=== PATIENT | female | born 1950 | race Asian ===

== ENCOUNTER 2016-11-05 08:54 | Day surgery (SDC) | payer OTHER, MEDICARE ==
[2016-11-04 15:17] VITALS: BMI 28.3
[2016-11-05] MEDS ORDERED: LIDOCAINE HCL/PF 1% SDV 5ML VIAL ONE (10:43)
[2016-11-05] MEDS ORDERED: PROPOFOL 20 ML ONE ×3 (10:43)
[2016-11-05 11:19] VITALS: TEMP 98
[2016-11-05 12:13] VITALS: BP 117/71; PULSE 65
== END 2016-11-05 12:12 | disposition home or self-care (01) ==
LOC: JASU-ENDO 08:54
PROVIDERS: ATTEND Internal Medicine Gastroenterology
PROC: 0DJD8ZZ Inspection of Lower Intestinal Tract, Via Natural or Artificial Opening Endoscopic (ICD-10-PCS; principal; 2016-11-05 11:15)
DX: Z86.010 Personal history of colon polyps (principal); Z85.3 Personal history of malignant neoplasm of breast

== ENCOUNTER 2017-09-12 11:39 | Emergency (ER) | payer OTHER ==
[2017-09-12 12:16] VITALS: BP 124/74; PULSE 74; TEMP 97.4; BMI 24.9
--- NOTE | 2017-09-12 13:19 | PDOC ---
History of Present Illness - General Chief Complaint: Injury Stated Complaint: FALL/ RT ANKLE PAIN Time Seen by Provider: 09/12/17 12:46 History Source: Patient Exam Limitations: No Limitations - History of Present Illness Initial Comments: 09/12/17 13:18 CHIEF COMPLAINT: Right ankle injury HISTORY OF PRESENT ILLNESS: Patient is a 66-year-old female, history of depression, anemia, coronary artery disease, hypothyroidism, high cholesterol, hypertension, breast cancer, reports walking down her stairs and missed the last step and fell. Inversion injury to right ankle lateral ankle with bruising. Unable to bear weight. Denies hitting her head, no back pain, no other injury. 09/12/17 13:50 Occurred: reports: just prior to arrival Severity: reports: moderate Pain Location: reports: lower extremity Method of Injury: Yes: fall Modifying Factors: improves with: cold therapy Loss of Consciousness: no loss of consciousness Past History - Past Medical History Allergies/Adverse Reactions: Allergies Allergy/AdvReac Type Severity Reaction Status Date / Time Penicillins Allergy Severe Verified 09/12/17 12:15 Home Medications: Ambulatory Orders Atorvastatin Calcium [Lipitor] 20 mg PO HS 08/25/12 Calcium Carbonate [Calcium] 1,200 mg PO DAILY 08/25/12 Cholecalciferol (Vitamin D3) [Vitamin D] 1,000 unit PO DAILY 08/25/12 Citalopram Hydrobromide [Celexa -] 20 mg PO BID 08/25/12 Clonazepam [Klonopin -] 2 mg PO TID 08/25/12 Levothyroxine [Synthroid -] 25 mcg PO DAILY 08/25/12 Zolpidem Tartrate [Ambien] 10 mg PO HS 08/25/12 Alendronate Na [Fosamax (Weekly)] 70 mg PO Q7D 11/05/16 Bupropion HCl [Wellbutrin Xl] 300 mg PO DAILY 11/05/16 Cyanocobalamin [Vitamin B12 -] 1,000 mcg PO DAILY 11/05/16 Venlafaxine HCl ER [Effexor Xr -] 150 mg PO DAILY 11/05/16 Oxycodone HCl/Acetaminophen [Percocet 5-325 mg Tablet] 1 - 2 tab PO Q6H #30 tab MDD 8 09/12/17 Anemia: Yes Asthma: No Cancer: Yes (rt breast) Cardiac Disorders: Yes (CAD) CVA: No COPD: No CHF: No Dementia: No Diabetes: No GI Disorders: Yes (COLON POLYP, HIATAL HERNIA) Disorders: No HTN: No Hypercholesterolemia: Yes Liver Disease: Yes (HEPATIC CYST) Psychiatric Problems: Yes (depression) Seizures: No Thyroid Disease: Yes (HYPO) - Surgical History Abdominal Surgery: Yes Appendectomy: No Cardiac Surgery: No Cholecystectomy: Yes Lung Surgery: No Neurologic Surgery: No Orthopedic Surgery: Yes (RIGHT HIP REPLACEMENT) - Suicide/Smoking/Psychosocial Hx Smoking History: Never smoked Have you smoked in the past 12 months: No Information on smoking cessation initiated: No Hx Alcohol Use: No Drug/Substance Use Hx: No Substance Use Type: None Hx Substance Use Treatment: No Trauma Specific PMHX - Complaint Specific PMHX Arthritis: Yes Back Injury: No Neck Injury: No Hx Sacro Iliac Joint Dysfunction: No Review of Systems - Review of Systems Constitutional: No: Symptoms Reported HEENTM: No: Symptoms Reported Respiratory: No: Symptoms reported Cardiac (ROS): No: Symptoms Reported ABD/GI: No: Symptoms Reported Musculoskeletal: Yes: Joint Pain, Joint Swelling. No: Neck Pain, Joint Stiffness Integumentary: Yes: Bruising, Erythema, Other (edema to right foot and ankle) Neurological: No: Paresthesia, Tingling, Tremors Hematologic/Lymphatic: No: Symptoms Reported All Other Systems: Reviewed and Negative *Physical Exam - Vital Signs Last Vital Signs Temp Pulse Resp BP Pulse Ox 97.4 F L 74 18 124/74 100 09/12/17 12:13 09/12/17 12:13 09/12/17 12:13 09/12/17 12:13 09/12/17 12:13 - Physical Exam General Appearance: Yes: Appropriately Dressed. No: Apparent Distress Neck: negative: Tender lateral, Tender midline Respiratory/Chest: positive: Lungs Clear, Normal Breath Sounds. negative: Respiratory Distress, Accessory Muscle Use Cardiovascular: positive: Regular Rhythm, Regular Rate Gastrointestinal/Abdominal: positive: Normal Bowel Sounds, Soft. negative: Tender Musculoskeletal: positive: Decreased Range of Motion Extremity: positive: Pedal Edema, Swelling, Erythema, Inflammation. negative: Normal Inspection, Normal Range of Motion Integumentary: positive: Erythema, Swelling, Ecchymosis, Bruising Neurologic: positive: Alert, Normal Mood/Affect, Normal Response Deep Tendon Reflexes: Ankle (L): 4+, Ankle (R): 4+, Knee (L): 4+, Knee (R): 4+ Procedures - Splinting Splint Location: Right: Ankle Pre-Proc Neuro Vasc Exam: normal Hand-Made Type: orthoglass Splint Type: Yes: Posterior Post-Proc Neuro Vasc Exam: normal Sling: No Complications: No Post splint xray: No Good repositioning: No Progress: 09/12/17 13:52 Crutches given, nonweightbearing status ED Treatment Course - RADIOLOGY Radiology Studies Ordered: Category Date Time Status ANKLE & FOOT-RIGHT* [RAD] Stat Radiology 09/12/17 12:17 Completed LEG TIB/FIB-RIGHT [RAD] Stat Radiology 09/12/17 12:34 Completed Medical Decision Making - Medical Decision Making 09/12/17 13:52 A/P: Patient here for evaluation of fall, sent to x-ray noted with bimalleolar fracture, posterior splint placed on. Spoke to Ernesto ALVA for Dr. Arndt patient to be splinted, nonweightbearing follow-up in office on Friday. I discussed the physical exam findings, ancillary test results and final diagnoses with the patient. I answered all of the patient's questions. The patient was satisfied with the care received and felt comfortable with the discharge plan and treatment plan. The patient will call to arrange follow-up and will return to the Emergency Department with any new, persistent or worsening symptoms. *DC/Admit/Observation/Transfer Diagnosis at time of Disposition: Bimalleolar ankle fracture Qualifiers: Encounter type: initial encounter Fracture type: closed Laterality: right Qualified Code(s): S82.841A - Displaced bimalleolar fracture of right lower leg , initial encounter for closed fracture - Discharge Dispostion Disposition: HOME Condition at time of disposition: Stable Admit: No - Prescriptions Prescriptions: Oxycodone HCl/Acetaminophen [Percocet 5-325 mg Tablet] 1 - 2 tab PO Q6H #30 tab MDD 8 - Referrals Referrals: Moshe Arndt MD [Staff Physician] - Kev Salazar MD [Primary Care Provider] - - Patient Instructions Printed Discharge Instructions: DI for Ankle Fracture Additional Instructions: 1. Please return to the emergency department with any redness, swelling, increased pain, or any other concerns. 2. Keep splint on. 3. Please follow up in the office of Dr. Arndt on Friday . 4. No weightbearing 5. Ice and elevate when at rest. - Post Discharge Activity
== END 2017-09-12 14:19 | disposition home or self-care (01) ==
LOC: JERFT 11:39
PROC: 2W3QX1Z Immobilization of Right Lower Leg using Splint (ICD-10-PCS; principal; 2017-09-12)
DX: S82.841A Displaced bimalleolar fracture of right lower leg, initial encounter for closed fracture (principal); W10.8XXA Fall (on) (from) other stairs and steps, initial encounter; Y93.89 Activity, other specified; Y92.019 Unspecified place in single-family (private) house as the place of occurrence of the external cause; Y99.8 Other external cause status; I25.10 Atherosclerotic heart disease of native coronary artery without angina pectoris; I10 Essential (primary) hypertension; E78.00 Pure hypercholesterolemia, unspecified; E03.9 Hypothyroidism, unspecified; D64.9 Anemia, unspecified; Z85.3 Personal history of malignant neoplasm of breast; Z86.010 Personal history of colon polyps
CPT/HCPCS: 29515; 73590-TC-RT; 73610-TC-RT; 73630-TC-RT; 99282-25

== ENCOUNTER 2017-09-17 06:05 | Day surgery (SDC) | payer OTHER ==
[2017-09-15 16:57] VITALS: BMI 24.7
[2017-09-17] MEDS ORDERED: ROPIVACAINE HCL 0.5% 30ML VIAL ONE (10:45)
[2017-09-17] MEDS ORDERED: MIDAZOLAM HCL 2 MG/2 ML SINGLE DOSE VIAL ONE ×2 (10:46)
[2017-09-17] MEDS ORDERED: fentaNYL CITRATE 250 MCG/5 ML VIAL ONE (11:43)
[2017-09-17] MEDS ORDERED: PROPOFOL 20 ML ONE ×2 (11:56)
[2017-09-17] MEDS ORDERED: CLINDAMYCIN 600 MG PREMIX BAG IVPB ONE (11:58)
[2017-09-17] MEDS ORDERED: oxyCODONE HCL 5 MG TABLET PO PRN (12:48)
[2017-09-17] MEDS ORDERED: ONDANSETRON 4 MG/2 ML VIAL IVPUSH PRN (12:48)
[2017-09-17] MEDS ORDERED: LACTATED RINGERS SOLUTION 1,000 ML IV SCH (13:00)
--- NOTE | 2017-09-17 13:09 | HP ---
Satellite H - Chief Complaint Chief Complaint: right ankle fx - Past Medical History Allergies/Adverse Reactions: Allergies Allergy/AdvReac Type Severity Reaction Status Date / Time Penicillins Allergy Severe Verified 09/17/17 10:46 - Current Medications Current Medications: Home Medications Medication Instructions Recorded Atorvastatin Calcium [Lipitor] 20 mg PO HS 08/25/12 Calcium Carbonate [Calcium] 1,200 mg PO DAILY 08/25/12 Cholecalciferol (Vitamin D3) 1,000 unit PO DAILY 08/25/12 [Vitamin D] Citalopram Hydrobromide [Celexa -] 20 mg PO BID 08/25/12 Clonazepam [Klonopin -] 2 mg PO TID 08/25/12 Levothyroxine [Synthroid -] 25 mcg PO DAILY 08/25/12 Zolpidem Tartrate [Ambien] 10 mg PO HS 08/25/12 Alendronate Na [Fosamax (Weekly)] 70 mg PO Q7D 11/05/16 Bupropion HCl [Wellbutrin Xl] 300 mg PO HS 11/05/16 Cyanocobalamin [Vitamin B12 -] 1,000 mcg PO DAILY 11/05/16 Oxycodone HCl/Acetaminophen 1 - 2 tab PO Q6H #50 tab MDD 8 09/17/17 [Percocet 5-325 mg Tablet] Satellite Physical Exam - Physical Examination Vital Signs: Vital Signs Period Temp Pulse Resp BP Sys/Milner Pulse Ox Last 24 Hr 98.3 F 101 20 113/68 100 General Appearance: Well Nourished, Well Developed, Alert & Oriented x3 ENT: Clear Lung: Normal air movement Heart: Regular rate & rhythm Extremities: Other (right ankle- Splint intact, + swelling, + ttp, decr rom, nvi xrays show displaced jay jay fx) Neurological: Intact, Alert, Oriented Satellite Impression/Plan - Impression/Plan Impression: right ankle fx Operative Procedure: right ankle orif Date to be Performed: 09/17/17
--- NOTE | 2017-09-17 13:12 | OP ---
Operative Note - Note: Operative Date: 09/17/17 ([facility]) Pre-Operative Diagnosis: right ankle jay jay fx Operation: right ankle orif Post-Operative Diagnosis: Same as Pre-op Surgeon: Moshe Arndt Can Maker: Ernesto Keen Anesthesiologist/SOCIAL MEDIA CONTENT SPECIALIST: Hamlet Mello Anesthesia: Spinal, Local Estimated Blood Loss (mls): 10 (tourniquet) Operative Report Dictated: Yes
[2017-09-17 14:53] VITALS: TEMP 98.2
[2017-09-17 17:15] VITALS: BP 119/68; PULSE 92
--- NOTE | 2017-09-18 11:48 | OP ---
DATE OF OPERATION: 09/17/2017 PREOPERATIVE DIAGNOSIS: Right bimalleolar ankle fracture. POSTOPERATIVE DIAGNOSIS: Right bimalleolar ankle fracture. PROCEDURE: Open reduction internal fixation right bimalleolar ankle fracture. SURGICAL ATTENDING: Moshe Arndt MD ANESTHESIA: General and regional. COMPLICATIONS: None. CONDITION: To recovery room in stable condition. DESCRIPTION OF PROCEDURE: The patient was taken to the operating room on September 17, 2017. Regional and general anesthesia was administered by the anesthesiologist. IV Kefzol was administered prophylactically prior to the case. A well-padded pneumatic tourniquet was placed on the right proximal calf away from the fibular head. The right lower extremity was prepped and draped in the usual sterile fashion. The leg was exsanguinated with an Esmarch bandage. Tourniquet was inflated to 250 mmHg. An 8-cm longitudinal incision over the distal tibia was incised. Hemostasis achieved with Bovie electrocautery. Sharp dissection was carried down to the level of the fracture. The fracture was found to be completely transverse and very distal. It was curetted, irrigated, and freed of the soft tissue, and anatomical reduction was obtained. A small distal fibula plate was pinned to the fibula. Multiple proximal and distal screws were drilled, depth gauged, and screwed. Initially, nonlocking screws were used then locking screws were used in order to rigidly affix the fracture. Anatomic reduction was obtained. Next, our attention was directed to the medial side. A 5-cm longitudinal incision over the distal medial malleolar. It was incised. Hemostasis was achieved. Bovie cautery sharp dissection was carried down to the level of the fracture. The fracture was found to be comminuted with the outer cortex being just a shell over cancellous bone underneath. A dental probe was used to manipulate the fracture to get an anatomic reduction. This was needed to be held by multiple pins in different planes in order to obtain a rigid fixation. Over these wires was placed 4-0 cannulated lag screws with washers in order to attain good fixation. The wires were pulled, and fixation was found to be acceptable. X-rays in AP, mortis, and lateral views revealed anatomic reduction of the fracture with intact mortis. Both incisions were irrigated out with copious amounts of irrigation. The subcutaneous was closed with 2-0 Vicryl and keerthi for skin. Sterile pressure dressing followed by a U splint was applied. Tourniquet was deflated. Total tourniquet time approximately . Rocky [id number]
== END 2017-09-17 17:10 | disposition home or self-care (01) ==
LOC: JASU-SURG 06:05
PROVIDERS: ATTEND Orthopaedic Surgery
PROC: 0QSG04Z Reposition Right Tibia with Internal Fixation Device, Open Approach (ICD-10-PCS; principal; 2017-09-17 15:00)
DX: S82.841A Displaced bimalleolar fracture of right lower leg, initial encounter for closed fracture (principal); X58.XXXA Exposure to other specified factors, initial encounter; Y93.9 Activity, unspecified; Y92.9 Unspecified place or not applicable; Y99.9 Unspecified external cause status
CPT/HCPCS: 76000-TC; 94760

== ENCOUNTER 2019-04-06 12:21 | Inpatient (IN) | payer OTHER, MEDICARE ==
[2019-04-06 14:08] LABS: BASO % 0.6 % (0-2.0); EOS % 1.1 % (0-4.5); HEMATOCRIT 33.6 % (32.4-45.2); HEMOGLOBIN 10.7 GM/dL (10.7-15.3); MCH 23.1 pg (25.7-33.7); MCHC 31.7 g/dl (32.0-36.0); MEAN CELL VOLUME 72.7 fl (80-96); MEAN PLT VOLUME 9.3 fl (7.5-11.1); MONO % 7.6 % (3.8-10.2); NEUT % 62.7 % (42.8-82.8); RBC 4.63 M/mm3 (3.60-5.2); RDW 14.6 % (11.6-15.6)
[2019-04-06 14:20] LABS: INR 0.99 (0.83-1.09); PROTHROMBIN TIME (PATIENT) 11.7 SEC (9.7-13.0)
[2019-04-06 14:25] LABS: PLATELET COUNT 310 K/MM3 (134-434)
[2019-04-06 14:34] LABS: ALBUMIN 3.7 g/dl (3.4-5.0); BILIRUBIN,TOTAL 0.3 mg/dL (0.2-1); BLOOD UREA NITROGEN 14.9 mg/dL (7-18); CALCIUM 9.3 mg/dL (8.5-10.1); TOT PROT 7.2 g/dl (6.4-8.2)
--- NOTE | 2019-04-06 14:50 | EKG ---
Test Reason : Blood Pressure : / mmHG Vent. Rate : 079 BPM Atrial Rate : 079 BPM P-R Int : 180 ms QRS Dur : 126 ms QT Int : 396 ms P-R-T Axes : 060 075 046 degrees QTc Int : 454 ms NORMAL SINUS RHYTHM RIGHT BUNDLE BRANCH BLOCK ABNORMAL ECG WHEN COMPARED WITH ECG OF 22-DEC-2007 18:11, RIGHT BUNDLE BRANCH BLOCK IS NOW PRESENT Confirmed by Asim Ly MD ([id number]) on 04/06/2019 2:49:49 PM Referred By: Confirmed By:Asim Ly MD
--- NOTE | 2019-04-06 15:24 | PDOC ---
History of Present Illness - General Chief Complaint: Injury Stated Complaint: LOWER BACK PAIN/ FALL Time Seen by Provider: 04/06/19 12:54 History Source: Patient Exam Limitations: No Limitations Past History - Travel Traveled outside of the country in the last 30 days: No Close contact w/someone who was outside of country & ill: No - Past Medical History Allergies/Adverse Reactions: Allergies Allergy/AdvReac Type Severity Reaction Status Date / Time Penicillins Allergy Severe Verified 04/06/19 17:32 Home Medications: Ambulatory Orders Atorvastatin Calcium [Lipitor] 20 mg PO HS 08/25/12 Calcium Carbonate [Calcium] 1,200 mg PO DAILY 08/25/12 Cholecalciferol (Vitamin D3) [Vitamin D] 1,000 unit PO DAILY 08/25/12 Levothyroxine [Synthroid -] 25 mcg PO DAILY 08/25/12 Zolpidem Tartrate [Ambien] 10 mg PO HS 08/25/12 clonazePAM [Klonopin -] 1 mg PO BID 08/25/12 Bupropion HCl [Wellbutrin Xl] 300 mg PO HS 11/05/16 Cyanocobalamin [Vitamin B12 -] 1,000 mcg PO DAILY 11/05/16 Ibuprofen 600 mg PO TID 04/06/19 Oxycodone HCl/Acetaminophen [Percocet 10-325 mg Tablet] 1 each PO DAILY Venlafaxine HCl ER [Effexor Xr -] 150 mg PO DAILY 04/06/19 Vortioxetine Hydrobromide [Trintellix] 10 mg PO DAILY 04/06/19 Anemia: Yes Asthma: No Cancer: Yes (breast) Cardiac Disorders: Yes (CAD) CVA: No COPD: No CHF: No Dementia: No Diabetes: No GI Disorders: Yes (COLON POLYP, HIATAL HERNIA) Disorders: No HTN: No Hypercholesterolemia: Yes Liver Disease: Yes (HEPATIC CYST) Psychiatric Problems: Yes (depression) Seizures: No Thyroid Disease: Yes (HYPO) - Surgical History Abdominal Surgery: Yes Appendectomy: No Cardiac Surgery: No Cholecystectomy: Yes Lung Surgery: No Neurologic Surgery: No Orthopedic Surgery: Yes (RIGHT HIP REPLACEMENT) - Immunization History Immunization Up to Date: No - Suicide/Smoking/Psychosocial Hx Smoking History: Never smoked Have you smoked in the past 12 months: No Information on smoking cessation initiated: No Hx Alcohol Use: No Drug/Substance Use Hx: No Substance Use Type: None Hx Substance Use Treatment: No Review of Systems - Review of Systems Able to Perform ROS?: Yes Comments:: 04/06/19 18:18 CONSTITUTIONAL: Absent: fever, chills, diaphoresis, generalized weakness, malaise, loss of appetite HEENT: Absent: rhinorrhea, nasal congestion, throat pain, throat swelling, difficulty swallowing, mouth swelling, ear pain, eye pain, visual Changes CARDIOVASCULAR: Absent: chest pain, loss of consciousness, palpitations, irregular heart rate, peripheral edema RESPIRATORY: Absent: cough, shortness of breath, dyspnea with exertion, orthopnea, wheezing, stridor, hemoptysis GASTROINTESTINAL: Absent: abdominal pain, abdominal distension, nausea, vomiting, diarrhea, constipation, melena, hematochezia GENITOURINARY: Absent: dysuria, frequency, urgency, hesitancy, hematuria, flank pain, genital pain MUSCULOSKELETAL: Present: low back pain, R hip pain Absent: myalgia, arthralgia, joint swelling SKIN: Absent: rash, itching, pallor NEUROLOGIC: Absent: headache, focal weakness or paresthesias, dizziness, unsteady gait, seizure, mental status changes, bladder or bowel incontinence PSYCHIATRIC: Present: audio/visual hallucinations Absent: anxiety, depression, suicidal or homicidal ideation. Is the patient limited Slovenian proficient: No *Physical Exam - Vital Signs Last Vital Signs Temp Pulse Resp BP Pulse Ox 98.3 F 89 16 114/73 100 04/06/19 12:26 04/06/19 12:26 04/06/19 12:26 04/06/19 12:26 04/06/19 12:26 - Physical Exam Comments: 04/06/19 18:22 GENERAL: Well developed, well nourished. Awake and alert. No acute distress. HEENT: Normocephalic, atraumatic. PERRLA, EOMI. No conjunctival pallor. Sclera are non- icteric. Moist mucous membranes. Oropharynx is clear. NECK: Supple. Full ROM. No JVD. Carotid pulses 2+ and symmetric, without bruits. No thyromegaly. No lymphadenopathy. CARDIOVASCULAR: Regular rate and rhythm. No murmurs, rubs, or gallops. Distal pulses are 2+ and symmetric. PULMONARY: No evidence of respiratory distress. Lungs clear to auscultation bilaterally. No wheezing, rales or rhonchi. ABDOMINAL: Soft. Non-tender. Non-distended. No rebound or guarding. No organomegaly. Normoactive bowel sounds. MUSCULOSKELETAL TTP midline spine around L1-L3. TTP of the R iliac crest. Normal range of motion at all joints. No bony deformities or tenderness. No CVA tenderness. EXTREMITIES: No cyanosis. No clubbing. No edema. No calf tenderness. SKIN: Warm and dry. Normal capillary refill. No rashes. No jaundice. NEUROLOGICAL: Alert, awake, appropriate. Cranial nerves 2-12 intact. No deficits to light touch and temperature in face, upper extremities and lower extremities. No motor deficits in the in face, upper extremities and lower extremities. Normoreflexic in the upper and lower extremities. Normal speech. Toes are down- going bilaterally. Gait is unobserved d/t pain, and reported unsteady gait PSYCHIATRIC: Cooperative. Good eye contact. Appropriate mood and affect. ED Treatment Course - LABORATORY CBC & Chemistry Diagram: 04/06/19 13:45 04/06/19 13:45 - ADDITIONAL ORDERS Additional order review: Laboratory Results 04/06/19 04/06/19 13:45 13:45 PT with INR 11.70 INR 0.99 Sodium 141 Potassium 4.0 Chloride 107 Carbon Dioxide 28 Anion Gap 6 L BUN 14.9 Creatinine 1.0 Est GFR (CKD-EPI)AfAm 66.10 Est GFR (CKD-EPI)NonAf 57.03 Random Glucose 90 Calcium 9.3 Total Bilirubin 0.3 AST 12 L ALT 16 Alkaline Phosphatase 153 H Total Protein 7.2 Albumin 3.7 04/06/19 13:45 RBC 4.63 MCV 72.7 L MCHC 31.7 L RDW 14.6 MPV 9.3 Neutrophils % 62.7 Lymphocytes % 28.0 D Monocytes % 7.6 Eosinophils % 1.1 Basophils % 0.6 - RADIOLOGY Radiology Studies Ordered: Category Date Time Status HEAD CT WITHOUT CONTRAST [CT] Stat CT Scan 04/06/19 13:00 Completed HIP & PELVIS-RIGHT [RAD] Stat Radiology 04/06/19 13:00 Taken SPINE-LUMBAR SACRAL [RAD] Stat Radiology 04/06/19 13:00 Taken Medical Decision Making - Medical Decision Making 04/06/19 18:27 The patient is a 68-year-old female past medical history of breast cancer status post mastectomy, in remission, coronary artery disease, HLD, depression, hypothyroidism, hiatal hernia, who presents to the ER today for unsteady gait and inability to ambulate. She also complains of left hip pain. According to her she fell approximately 10 days ago landing on her knees. Since then she has had increasing pain over the past 10 days. She is usually ambulatory meeting no assistance to walk. Since the fall she has been unable to ambulate and has been in a wheelchair. She also notes that she has right-sided back pain. Of note she also admits to hearing voices and seeing things that aren't there. She is currently being worked up by her primary care doctor for what I believe is a recurrence of her cancer. Denies fevers, chills, difficulty breathing, shortness of breath, chest pain, numbness and tingling and weakness to the affected extremities, no bladder bowel incontinence. PCP: Dr. Kev Pantoja Onc: Dr. Dubon A/P: Low back pain, hip pain, hallucinations On exam patient with midline tenderness around L1-L3. Patient also with tenderness to palpation of the iliac crest. Gait was unobserved due to patient' s instability. Impression does report hearing voices and is talking to people who aren't in the room. Concern for possible metastasis of her cancer Basic labs, head CT, low back x-ray, pelvic x-ray ordered Wet read of pelvic x-ray shows a significant wedge last compression fracture to L1 of indeterminate age. Given the patient was ambulatory prior to fall believe that this is a new fracture Lab work is grossly normal, no leukocytosis, H&H stable, electrolytes within normal limits and no urinary infection Given the complexity of the spinal fractures and inability to ambulate, will admit the patient as she is not safe for discharge 04/06/19 18:57 Dr. Peterson Paged *DC/Admit/Observation/Transfer Diagnosis at time of Disposition: Compression fracture, Unable to ambulate, Hallucinations - Discharge Dispostion Condition at time of disposition: Stable - Referrals - Patient Instructions - Post Discharge Activity
[2019-04-06 16:01] LABS: EPI CELLS 2.8 /HPF (0-5/HPF); HYALINE CASTS 6 /lpf (0-8); PH,URINE 6.5 (5.0-8.0); URINE APPEARANCE CLEAR; URINE BACTERIA 7.6 /hpf (NEGATIVE); URINE BILIRUBIN NEGATIVE (NEGATIVE); URINE COLOR DK YELLOW; URINE GLUCOSE (UA) NEGATIVE (NEGATIVE); URINE KETONE 1+ (NEGATIVE); URINE LEUK ESTERASE 1+ (NEGATIVE); URINE NITRITE NEGATIVE (NEGATIVE); URINE PROTEIN TRACE (NEGATIVE); URINE RBC 3 /hpf (0-4); URINE UROBILINOGEN 0.2 mg/dL (0.2-1.0); URINE WBC 16 /hpf (0-5)
--- NOTE | 2019-04-06 20:00 | PDOC ---
*Physical Exam - Vital Signs Last Vital Signs Temp Pulse Resp BP Pulse Ox 97.7 F 82 17 126/81 96 04/06/19 17:19 04/06/19 17:19 04/06/19 17:19 04/06/19 17:19 04/06/19 17:19 ED Treatment Course - LABORATORY CBC & Chemistry Diagram: 04/06/19 13:45 04/06/19 13:45 - ADDITIONAL ORDERS Additional order review: Laboratory Results 04/06/19 04/06/19 04/06/19 15:43 13:45 13:45 PT with INR 11.70 INR 0.99 Sodium 141 Potassium 4.0 Chloride 107 Carbon Dioxide 28 Anion Gap 6 L BUN 14.9 Creatinine 1.0 Est GFR (CKD-EPI)AfAm 66.10 Est GFR (CKD-EPI)NonAf 57.03 Random Glucose 90 Calcium 9.3 Total Bilirubin 0.3 AST 12 L ALT 16 Alkaline Phosphatase 153 H Total Protein 7.2 Albumin 3.7 Urine Color Dk yellow Urine Appearance Clear Urine pH 6.5 Ur Specific [place] 1.021 Urine Protein Trace Urine Glucose (UA) Negative Urine Ketones 1+ H Urine Blood Negative Urine Nitrite Negative Urine Bilirubin Negative Urine Urobilinogen 0.2 Ur Leukocyte Esterase 1+ H Urine WBC (Auto) 16 Urine RBC (Auto) 3 Urine Casts (Auto) 6 U Epithel Cells (Auto) 2.8 Urine Bacteria (Auto) 7.6 04/06/19 13:45 RBC 4.63 MCV 72.7 L MCHC 31.7 L RDW 14.6 MPV 9.3 Neutrophils % 62.7 Lymphocytes % 28.0 D Monocytes % 7.6 Eosinophils % 1.1 Basophils % 0.6 Medical Decision Making - Medical Decision Making 04/06/19 19:59 patient signed out to Dr. ortiz for admission. 04/06/19 20:[address] Oconnor (neurosurgery) : Recommends MRI given radicular pain and decreased ambulation. Dr. Al also recommends TLSO bracing. If there is conus medullaris compression on the MRI or bracing does not relieve her pain may need further intervention. *DC/Admit/Observation/Transfer Diagnosis at time of Disposition: Compression fracture, Unable to ambulate, Hallucinations - Discharge Dispostion Condition at time of disposition: Stable Decision to Admit order: Yes Decision to Admit order Date/Time: Decision to Admit Order Category Date Time Status Decision to Admit to Hospital Routine Admission 04/06/19 19:58 Ordered - Referrals - Patient Instructions - Post Discharge Activity
[2019-04-06] MEDS ORDERED: ACETAMINOPHEN 1000 MG/100 ML VIAL (NON FORMULARY) IVPB ONE (22:27)
[2019-04-07] MEDS ORDERED: ACETAMINOPHEN INJECTION 100 ML IVPB ONE (00:28)
[2019-04-07] MEDS ORDERED: MORPHINE SULFATE 2 MG/ML VIAL IVPUSH PRN (01:50)
[2019-04-07] MEDS ORDERED: DEXTROSE 5%-0.45% SALINE 1,000 ML IV SCH (02:00)
[2019-04-07] MEDS: LEVOTHYROXINE NA 25 MCG TABLET (FP) PO SCH (08:00)
[2019-04-07 08:12] LABS: ALBUMIN 3.6 g/dl (3.4-5.0); BILIRUBIN,TOTAL 0.4 mg/dL (0.2-1); BLOOD UREA NITROGEN 10.1 mg/dL (7-18); CALCIUM 8.6 mg/dL (8.5-10.1); POTASSIUM 3.3 mmol/L (3.5-5.1)
[2019-04-07 08:16] LABS: BASO % 0.6 % (0-2.0); EOS % 1.3 % (0-4.5); HEMATOCRIT 34.1 % (32.4-45.2); HEMOGLOBIN 10.8 GM/dL (10.7-15.3); LYMPH % 21.6 % (8-40); MCHC 31.7 g/dl (32.0-36.0); MEAN CELL VOLUME 72.6 fl (80-96); MEAN PLT VOLUME 9.7 fl (7.5-11.1); MONO % 8.1 % (3.8-10.2); NEUT % 68.4 % (42.8-82.8); PLATELET COUNT 286 K/MM3 (134-434); RBC 4.69 M/mm3 (3.60-5.2); RDW 14.7 % (11.6-15.6); WHITE BLOOD COUNT 5.2 K/mm3 (4.0-10.0)
[2019-04-07] MEDS: CALCIUM CARBONATE 650 MG TABLET PO SCH (09:24)
[2019-04-07] MEDS: HEPARIN NA (PORCINE) 5,000 UNITS/ML 1ML VIAL SQ SCH ×2 (09:24→21:03)
[2019-04-07] MEDS: VENLAFAXINE HCL 75 MG E.R. CAPSULES (FP) PO SCH (09:24)
[2019-04-07] MEDS: clonazePAM 0.5 MG TABLET PO SCH ×2 (09:25→21:04)
[2019-04-07] MEDS: CYANOCOBALAMIN 1,000 MCG TABLET (FP) PO SCH (09:25)
--- NOTE | 2019-04-07 09:57 | CON.CARD ---
Consult Consult Specialty:: Cardiology - History of Present Illness History of Present Illness: The patient is a 68-year-old female past medical history of breast cancer status post mastectomy, in remission, coronary artery disease, HLD, depression, hypothyroidism, hiatal hernia, who presents to the ER today for unsteady gait and inability to ambulate. She also complains of left hip pain. According to her she fell approximately 10 days ago landing on her knees. Since then she has had increasing pain over the past 10 days. She is usually ambulatory meeting no assistance to walk. Since the fall she has been unable to ambulate and has been in a wheelchair. She also notes that she has right-sided back pain. Of note she also admits to hearing voices and seeing things that aren't there. She is currently being worked up by her primary care doctor for what I believe is a recurrence of her cancer. Denies fevers, chills, difficulty breathing, shortness of breath, chest pain, numbness and tingling and weakness to the affected extremities, no bladder bowel incontinence. PCP: Dr. Kev Pantoja Onc: Dr. Dubon - History Source History Provided By: Medical Record - Past Medical History Cardio/Vascular: Yes: CAD - Alcohol/Substance Use Hx Alcohol Use: No - Smoking History Smoking history: Never smoked Have you smoked in the past 12 months: No Home Medications - Allergies Allergies/Adverse Reactions: Allergies Allergy/AdvReac Type Severity Reaction Status Date / Time Penicillins Allergy Severe Verified 04/06/19 17:32 - Home Medications Home Medications: Ambulatory Orders Atorvastatin Calcium [Lipitor] 20 mg PO HS 08/25/12 Calcium Carbonate [Calcium] 1,200 mg PO DAILY 08/25/12 Cholecalciferol (Vitamin D3) [Vitamin D] 1,000 unit PO DAILY 08/25/12 Levothyroxine [Synthroid -] 25 mcg PO DAILY 08/25/12 Zolpidem Tartrate [Ambien] 10 mg PO HS 08/25/12 clonazePAM [Klonopin -] 1 mg PO BID 08/25/12 Bupropion HCl [Wellbutrin Xl] 300 mg PO HS 11/05/16 Cyanocobalamin [Vitamin B12 -] 1,000 mcg PO DAILY 11/05/16 Ibuprofen 600 mg PO TID 04/06/19 Oxycodone HCl/Acetaminophen [Percocet 10-325 mg Tablet] 1 each PO DAILY Venlafaxine HCl ER [Effexor Xr -] 150 mg PO DAILY 04/06/19 Vortioxetine Hydrobromide [Trintellix] 10 mg PO DAILY 04/06/19 Review of Systems - Review of Systems Constitutional: reports: No Symptoms Eyes: reports: No Symptoms HENT: reports: No Symptoms Neck: reports: No Symptoms Cardiovascular: reports: No Symptoms Gastrointestinal: reports: No Symptoms Genitourinary: reports: No Symptoms Breasts: reports: No Symptoms Reported Musculoskeletal: reports: No Symptoms Integumentary: reports: No Symptoms Neurological: reports: Confusion Endocrine: reports: No Symptoms Hematology/Lymphatic: reports: No Symptoms Psychiatric: reports: No Symptoms Vital Signs: Vital Signs Temperature 97.8 F 04/07/19 07:23 Pulse Rate 89 04/07/19 07:23 Respiratory Rate 16 04/07/19 07:23 Blood Pressure 127/74 04/07/19 07:23 O2 Sat by Pulse Oximetry (%) 98 04/07/19 07:23 Constitutional: Yes: Well Nourished, No Distress, Calm Eyes: Yes: WNL, Conjunctiva Clear, EOM Intact HENT: Yes: WNL, Atraumatic, Normocephalic Neck: Yes: WNL, Supple, Trachea Midline Respiratory: Yes: WNL, Regular, CTA Bilaterally Gastrointestinal: Yes: WNL, Normal Bowel Sounds Renal/: Yes: WNL Cardiovascular: Yes: WNL, Regular Rate and Rhythm Musculoskeletal: Yes: WNL Extremities: Yes: WNL Edema: No Integumentary: Yes: WNL ...Motor Strength: WNL Psychiatric: Yes: WNL, Alert, Oriented - Other Data Labs, Other Data: CBC, BMP 04/07/19 06:25 04/07/19 06:25 INR, PTT INR 0.99 (0.83-1.09) 04/06/19 13:45 Imaging - Results Chest X-ray: Pending EKG: Image Reviewed (sr rbbb) Problem List - Problems (1) Compression fracture Code(s): IBF7890 - (2) Hallucinations Code(s): R44.3 - HALLUCINATIONS, UNSPECIFIED (3) Unable to ambulate Code(s): R26.2 - DIFFICULTY IN WALKING, NOT ELSEWHERE CLASSIFIED (4) Bimalleolar ankle fracture Code(s): S82.843A - DISPLACED BIMALLEOLAR FRACTURE OF UNSP LOWER LEG, INIT Qualifiers: Encounter type: initial encounter Fracture type: closed Laterality: right Qualified Code(s): S82.841A - Displaced bimalleolar fracture of right lower leg, initial encounter for closed fracture Assessment/Plan A/P: Low back pain, hip pain, hallucinations pelvic x-ray shows a significant wedge last compression fracture to L1 of indeterminate age. Given the patient was ambulatory prior to fall believe that this is a new fracture Lab work is grossly normal, no leukocytosis, H&H stable, electrolytes within normal limits and no urinary infection Given the complexity of the spinal fractures and inability to ambulate, ECHO Cardiac humphrey stable will f/u
[2019-04-07 13:48] VITALS: BMI 25.2
--- NOTE | 2019-04-07 15:14 | HP ---
Admitting History and Physical - Admission History of Present Illness: Pt is a 68-year-old female w/ PMH significant for breast cancer status post mastectomy(in remission), coronary artery disease, HLD, HTN, depression, hypothyroidism and hiatal hernia. Pt presented to the ER for unsteady gait and inability to ambulate. She also complains of left hip pain. According to her she fell approximately 10 days ago landing on her knees. Since then she has had increasing pain over the past 10 days. She is usually ambulatory needing no assistance to walk. Since the fall she has been unable to ambulate and has been in a wheelchair. She also notes that she has right-sided back pain. Of note she also admits to hearing voices and seeing things that aren't there. - Past Medical History Cardiovascular: Yes: CAD, HTN, Hyperlipdemia Heme/Onc: Yes: Cancer (Breast cancer) Endocrine: Yes: Hypothyroidism - Smoking History Smoking history: Never smoked Have you smoked in the past 12 months: No - Alcohol/Substance Use Hx Alcohol Use: No Home Medications - Allergies Allergies/Adverse Reactions: Allergies Allergy/AdvReac Type Severity Reaction Status Date / Time Penicillins Allergy Severe Verified 04/06/19 17:32 - Home Medications Home Medications: Ambulatory Orders Atorvastatin Calcium [Lipitor] 20 mg PO HS 08/25/12 Calcium Carbonate [Calcium] 1,200 mg PO DAILY 08/25/12 Cholecalciferol (Vitamin D3) [Vitamin D] 1,000 unit PO DAILY 08/25/12 Levothyroxine [Synthroid -] 25 mcg PO DAILY 08/25/12 Zolpidem Tartrate [Ambien] 10 mg PO HS 08/25/12 clonazePAM [Klonopin -] 1 mg PO BID 08/25/12 Bupropion HCl [Wellbutrin Xl] 300 mg PO HS 11/05/16 Cyanocobalamin [Vitamin B12 -] 1,000 mcg PO DAILY 11/05/16 Ibuprofen 600 mg PO TID 04/06/19 Oxycodone HCl/Acetaminophen [Percocet 10-325 mg Tablet] 1 each PO DAILY Venlafaxine HCl ER [Effexor Xr -] 150 mg PO DAILY 04/06/19 Vortioxetine Hydrobromide [Trintellix] 10 mg PO DAILY 04/06/19 Review of Systems - Review of Systems Constitutional: reports: No Symptoms HENT: reports: No Symptoms Neck: reports: No Symptoms Cardiovascular: reports: No Symptoms Respiratory: reports: No Symptoms Gastrointestinal: reports: No Symptoms Genitourinary: reports: No Symptoms Physical Examination Vital Signs: Vital Signs Temperature 97.9 F 04/07/19 12:26 Pulse Rate 89 04/07/19 12:26 Respiratory Rate 20 04/07/19 12:26 Blood Pressure 128/81 04/07/19 12:26 O2 Sat by Pulse Oximetry (%) 98 04/07/19 10:34 HENT: Yes: WNL Neck: Yes: WNL, Supple Cardiovascular: Yes: WNL, Regular Rate and Rhythm Respiratory: Yes: WNL, Regular, CTA Bilaterally Gastrointestinal: Yes: WNL, Normal Bowel Sounds, Soft Extremities: Yes: WNL Edema: No Labs: CBC, BMP 04/07/19 06:25 04/07/19 06:25
[2019-04-07] MEDS: ATORVASTATIN CA 20 MG TABLET (FP) PO SCH (21:03)
[2019-04-08] MEDS: LEVOTHYROXINE NA 25 MCG TABLET (FP) PO SCH (06:02)
[2019-04-08] MEDS ORDERED: PT OWN MED DRAWER 7, Y5N ONE (09:42)
[2019-04-08] MEDS: CYANOCOBALAMIN 1,000 MCG TABLET (FP) PO SCH (09:48)
[2019-04-08] MEDS: HEPARIN NA (PORCINE) 5,000 UNITS/ML 1ML VIAL SQ SCH ×2 (09:50→21:07)
[2019-04-08] MEDS: CALCIUM CARBONATE 650 MG TABLET PO SCH (09:50)
[2019-04-08] MEDS: VENLAFAXINE HCL 75 MG E.R. CAPSULES (FP) PO SCH (09:50)
[2019-04-08] MEDS: clonazePAM 0.5 MG TABLET PO SCH ×2 (09:50→21:07)
--- NOTE | 2019-04-08 10:55 | CONSULT ---
Consult - text type - Consultation Consultation Note: NEUROLOGY CONSULT GREATLY APPRECIATED: Events reviewed and discussed with KENNY Lan. at bedside aiding in history. 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 PMHX: HLD, hypothyroid, depression/anxiety, insomnia, chronic pain, Breast CA s/ p R masectomy, and previous hx of migraines, now quiescent. On: atorvastatin, Synthroid, zolpidem, clonazepam 1mg BID, buproprion 300 mg, B12, percocet 10 qd, venlafaxine 150 mg, vortioxetine 10 mg. Surgical hx: R THR, R ankle fixation Notes 3 years of progressive gait decline with recurrent falls, now requiring use of cane and her walking behind her to "catch her." Admitted after exacerbation of low back pain after fall 2 weeks ago w radiation into legs. Ambulation limited due to "heavy, weak" feeling in legs. She describes the pain as "aching in nature" and worse in evening hours, awakening her from sleep. Previously followed by Dr. Davion Christy in 2017 for change in speech, handwriting and imbalance. MRI of brain at time 05/26/17 (reviewed): mod volume loss with chronic periventricular ischemic changes. MRI LS spine this admission (reviewed): recent compression fracture L1. L3/L4 mild L paracentral disc bulge with facet hypertrophy. L4/L5, L5/S1 disc bulges. ROS sign for seeing her daughter and feeling of presence, which is not frightful to her. Her and her admit more recent memory decline and accusations that he is stealing money, so he has taken over cooking, cleaning, shopping and bills. Head CT (reviewed): Mod atrophy with chronic periventricular ischemic changes. MCV 72.7 Urine WBC= 16 JOSIAS: Cor reg. No bruit. Sl reduced neck ROM all directions. Scattered ecchymosis to R forearm and R leg. Neg SLR. Neg Sekou's. Neg Maral's. NEURO: Awake, alert, sl dysarthric. OX "[facility]" "[facility]" "Beginning of 2018. TRUMP-> PMURTA. 10/15 recall @ 3 min. No frontal release findings. CNXII-CNXII: Masked facies. EOM's full. Full feliciano. No facial. Reduced rapid tongue. Gag ok. Motor: Bradykinetic. No drift. + Cogwheeling with reinforcement R > L. Decreased MARK's L > R. Strength normal. Reflexes normal in arms, areflexic in legs. Plantars silent. Coordination: No FTN dystaxia, but slowed. Sensation: Normal to vibration. Romberg + Gait: Sl flexed, shuffling. Retropulsive. 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
--- NOTE | 2019-04-08 12:05 | PN ---
Progress Note, Physician History of Present Illness: The patient is a 68-year-old female past medical history of breast cancer status post mastectomy, in remission, coronary artery disease, HLD, depression, hypothyroidism, hiatal hernia, who presents to the ER today for unsteady gait and inability to ambulate. She also complains of left hip pain. According to her she fell approximately 10 days ago landing on her knees. Since then she has had increasing pain over the past 10 days. She is usually ambulatory meeting no assistance to walk. Since the fall she has been unable to ambulate and has been in a wheelchair. She also notes that she has right-sided back pain. Of note she also admits to hearing voices and seeing things that aren't there. She is currently being worked up by her primary care doctor for what I believe is a recurrence of her cancer. Denies fevers, chills, difficulty breathing, shortness of breath, chest pain, numbness and tingling and weakness to the affected extremities, no bladder bowel incontinence. PCP: Dr. Kev Pantoja - Current Medication List Current Medications: Active Medications Atorvastatin Calcium (Lipitor -) 20 mg PO HS [facility] Last Admin: 04/07/19 21:03 Dose: 20 mg Bupropion HCl (Wellbutrin Xl -) 300 mg PO DAILY [facility] Last Admin: 04/08/19 09:49 Dose: 300 mg Calcium Carbonate (Calcium Carbonate -) 1,300 mg PO DAILY [facility] Last Admin: 04/08/19 09:50 Dose: 1,300 mg Clonazepam (Klonopin -) 1 mg PO BID [facility] Last Admin: 04/08/19 09:50 Dose: 1 mg Cyanocobalamin (Vitamin B12 -) 1,000 mcg PO DAILY [facility] Last Admin: 04/08/19 09:48 Dose: 1,000 mcg Heparin Sodium (Porcine) (Heparin -) 5,000 unit SQ BID [facility] Last Admin: 04/08/19 09:50 Dose: 5,000 unit Dextrose/Sodium Chloride (D5-1/2ns -) 1,000 mls @ 75 mls/hr IV ASDIR [facility] Last Admin: 04/07/19 02:47 Dose: 75 mls/hr Levothyroxine Sodium (Synthroid -) 25 mcg PO DAILY@0700 [facility] Last Admin: 04/08/19 06:02 Dose: 25 mcg Morphine Sulfate (Morphine Sulfate) 2 mg IVPUSH Q6H PRN PRN Reason: pain Last Admin: 04/08/19 05:58 Dose: 2 mg Venlafaxine HCl (Effexor Xr -) 150 mg PO DAILY [facility] Last Admin: 04/08/19 09:50 Dose: 150 mg - Objective Vital Signs: Vital Signs Temperature 98.2 F 04/08/19 05:50 Pulse Rate 74 04/08/19 05:50 Respiratory Rate 20 04/08/19 05:50 Blood Pressure 107/64 04/08/19 05:50 O2 Sat by Pulse Oximetry (%) 98 04/07/19 21:00 Labs: CBC, BMP 04/07/19 06:25 04/07/19 06:25 INR, PTT INR 0.99 (0.83-1.09) 04/06/19 13:45
[2019-04-08] MEDS: ATORVASTATIN CA 20 MG TABLET (FP) PO SCH (21:07)
--- NOTE | 2019-04-08 21:28 | PN ---
Progress Note (short form) - Note Progress Note: NEUROLOGY PROGRESS: Additional history provided by son, Nadine, on the phone and at the bedside. He describes 10 year h/o depression but was lucid and conversed intelligently 6 mos ago, even 3 mos ago when she travelled to [facility]. Apparently was hospitalized there for "infection." He notes 12 mos of deterioration of gait and cognition, especially in the last 2-3 mos with multiple medication changes and the development of paranoia, agitation and gibberish speech. According to RN Pt slept well after Quetiapine last night but was again agitated and paranoid this AM. Pt reexamined. Admits to feeling depressed and scared. Asks if she can trust me. Brain MRI reviewed and discussed with Dr. Peterson. MRI (C-) reveals moderately severe, diffuse, atrophy with diffuse, chronic white matter confluent microvascular disease. MRI of LS spine shows subtotal collapse of L1 (age-indeterminate) with moderate canal stenosis. On exam Pt is staring, intermittently agitated and confused. In NAD. No apparent pain. Appears frightened and paranoid.Initially cannot identify her son but then does. Ox "home" but when she is calmer she is oriented to [facility], [place], , Trump -> PMURT +Glabella, snout, B/L Grasps Mild, B/L cogwheel rigidity increased by reinforcement. Stands with assistance, shuffling, frozen. IMP: Moderately severe B/L cerebral dysfunction without obvious focality to suggest stroke Extrapyramidal (Parkinsonian) features- Possibly PD (given 3-4 years of progressive gait dysfunction) and PD-Psychosis. Possible Serotonin syndrome. L1 vertebral collapse-age indeterminate. SUGGEST: D/C Trintillix. Reduce venlafaxine to 75 mg x 1 week then D/C Continue Bupropion XL 300. Psychaitry consultation D/C narcotic analgesics. Add Quetiapine 25 mg QHS and titrate, slowly, for agitation. ( Pimavanserin Rx as out patient) OO Bed to chair and PT for mobilization with walker. Thank you very much, Moshe Mathews MD
[2019-04-08] MEDS ORDERED: QUEtiapine FUMARATE 25 MG TABLET (FP) PO SCH (22:00)
--- NOTE | 2019-04-08 22:32 | PN ---
Progress Note, Physician - Current Medication List Current Medications: Active Medications Atorvastatin Calcium (Lipitor -) 20 mg PO HS [facility] Last Admin: 04/08/19 21:07 Dose: 20 mg Bupropion HCl (Wellbutrin Xl -) 300 mg PO DAILY [facility] Last Admin: 04/08/19 09:49 Dose: 300 mg Calcium Carbonate (Calcium Carbonate -) 1,300 mg PO DAILY [facility] Last Admin: 04/08/19 09:50 Dose: 1,300 mg Clonazepam (Klonopin -) 1 mg PO BID [facility] Last Admin: 04/08/19 21:07 Dose: 1 mg Cyanocobalamin (Vitamin B12 -) 1,000 mcg PO DAILY [facility] Last Admin: 04/08/19 09:48 Dose: 1,000 mcg Heparin Sodium (Porcine) (Heparin -) 5,000 unit SQ BID [facility] Last Admin: 04/08/19 21:07 Dose: 5,000 unit Dextrose/Sodium Chloride (D5-1/2ns -) 1,000 mls @ 75 mls/hr IV ASDIR [facility] Last Admin: 04/07/19 02:47 Dose: 75 mls/hr Levothyroxine Sodium (Synthroid -) 25 mcg PO DAILY@0700 [facility] Last Admin: 04/08/19 06:02 Dose: 25 mcg Morphine Sulfate (Morphine Sulfate) 2 mg IVPUSH Q6H PRN PRN Reason: pain Last Admin: 04/08/19 05:58 Dose: 2 mg Quetiapine Fumarate (Seroquel -) 25 mg PO HS [facility] Venlafaxine HCl (Effexor Xr -) 75 mg PO DAILY [facility] - Objective Vital Signs: Vital Signs Temperature 98.3 F 04/08/19 19:00 Pulse Rate 91 H 04/08/19 19:00 Respiratory Rate 20 04/08/19 19:00 Blood Pressure 126/82 04/08/19 19:00 O2 Sat by Pulse Oximetry (%) 98 04/07/19 21:00 Labs: CBC, BMP 04/07/19 06:25 04/07/19 06:25 INR, PTT INR 0.99 (0.83-1.09) 04/06/19 13:45
[2019-04-09] MEDS: LEVOTHYROXINE NA 25 MCG TABLET (FP) PO SCH (06:14)
[2019-04-09 07:45] LABS: BASO % 0.9 % (0-2.0); EOS % 3.2 % (0-4.5); HEMATOCRIT 30.6 % (32.4-45.2); HEMOGLOBIN 9.9 GM/dL (10.7-15.3); LYMPH % 37.9 % (8-40); MCH 23.4 pg (25.7-33.7); MCHC 32.2 g/dl (32.0-36.0); MEAN CELL VOLUME 72.6 fl (80-96); MEAN PLT VOLUME 9.9 fl (7.5-11.1); MONO % 9.4 % (3.8-10.2); NEUT % 48.6 % (42.8-82.8); RBC 4.22 M/mm3 (3.60-5.2); RDW 14.7 % (11.6-15.6); WHITE BLOOD COUNT 4.1 K/mm3 (4.0-10.0)
[2019-04-09 08:06] LABS: SERUM IRON SATURATION 20 % (15-55); TOTAL IRON BINDING CAPACITY 192 ug/dL (250-450)
[2019-04-09 08:14] LABS: PLATELET COUNT 232 K/MM3 (134-434)
[2019-04-09 08:18] LABS: ALBUMIN 3.1 g/dl (3.4-5.0); BILIRUBIN,TOTAL 0.4 mg/dL (0.2-1); BLOOD UREA NITROGEN 9.6 mg/dL (7-18); CALCIUM 8.5 mg/dL (8.5-10.1); CREATININE 0.9 mg/dL (0.55-1.3); POTASSIUM 3.7 mmol/L (3.5-5.1); TOT PROT 6.2 g/dl (6.4-8.2)
[2019-04-09] MEDS ORDERED: PT OWN MED DRAWER 7, Y5N ONE (09:47)
[2019-04-09] MEDS ORDERED: LORazepam 2 MG/ML SDV VIAL IVPUSH ONE (10:30)
[2019-04-09] MEDS: CALCIUM CARBONATE 650 MG TABLET PO SCH (11:37)
[2019-04-09] MEDS: VENLAFAXINE HCL 75 MG E.R. CAPSULES (FP) PO SCH (11:37)
[2019-04-09] MEDS: CYANOCOBALAMIN 1,000 MCG TABLET (FP) PO SCH (11:38)
[2019-04-09] MEDS: HEPARIN NA (PORCINE) 5,000 UNITS/ML 1ML VIAL SQ SCH ×2 (11:44→21:25)
[2019-04-09] MEDS: clonazePAM 0.5 MG TABLET PO SCH ×2 (11:44→21:26)
--- NOTE | 2019-04-09 13:25 | PN ---
Progress Note, Physician History of Present Illness: The patient is a 68-year-old female past medical history of breast cancer status post mastectomy, in remission, coronary artery disease, HLD, depression, hypothyroidism, hiatal hernia, who presents to the ER today for unsteady gait and inability to ambulate. She also complains of left hip pain. According to her she fell approximately 10 days ago landing on her knees. Since then she has had increasing pain over the past 10 days. She is usually ambulatory meeting no assistance to walk. Since the fall she has been unable to ambulate and has been in a wheelchair. She also notes that she has right-sided back pain. Of note she also admits to hearing voices and seeing things that aren't there. She is currently being worked up by her primary care doctor for what I believe is a recurrence of her cancer. Denies fevers, chills, difficulty breathing, shortness of breath, chest pain, numbness and tingling and weakness to the affected extremities, no bladder bowel incontinence. PCP: Dr. Kev Pantoja Onc: Dr. Dubon - Current Medication List Current Medications: Active Medications Atorvastatin Calcium (Lipitor -) 20 mg PO HS [facility] Last Admin: 04/08/19 21:07 Dose: 20 mg Bupropion HCl (Wellbutrin Xl -) 300 mg PO DAILY [facility] Last Admin: 04/09/19 11:37 Dose: 300 mg Calcium Carbonate (Calcium Carbonate -) 1,300 mg PO DAILY [facility] Last Admin: 04/09/19 11:37 Dose: 1,300 mg Clonazepam (Klonopin -) 1 mg PO BID [facility] Last Admin: 04/09/19 11:44 Dose: 1 mg Cyanocobalamin (Vitamin B12 -) 1,000 mcg PO DAILY [facility] Last Admin: 04/09/19 11:38 Dose: 1,000 mcg Heparin Sodium (Porcine) (Heparin -) 5,000 unit SQ BID [facility] Last Admin: 04/09/19 11:44 Dose: 5,000 unit Levothyroxine Sodium (Synthroid -) 25 mcg PO DAILY@0700 [facility] Last Admin: 04/09/19 06:14 Dose: 25 mcg Quetiapine Fumarate (Seroquel -) 25 mg PO HS [facility] Last Admin: 04/08/19 22:51 Dose: 25 mg Venlafaxine HCl (Effexor Xr -) 75 mg PO DAILY [facility] Last Admin: 04/09/19 11:37 Dose: 75 mg - Objective Vital Signs: Vital Signs Temperature 98.1 F 04/09/19 05:40 Pulse Rate 88 04/09/19 05:40 Respiratory Rate 20 04/09/19 05:40 Blood Pressure 135/80 04/09/19 05:40 O2 Sat by Pulse Oximetry (%) 98 04/08/19 21:00 Eyes: Yes: WNL, Conjunctiva Clear, EOM Intact HENT: Yes: WNL, Atraumatic, Normocephalic Neck: Yes: WNL, Supple, Trachea Midline Cardiovascular: Yes: WNL, Regular Rate and Rhythm Respiratory: Yes: WNL, Regular, CTA Bilaterally Gastrointestinal: Yes: WNL, Normal Bowel Sounds Genitourinary: Yes: WNL Musculoskeletal: Yes: WNL Extremities: Yes: WNL Edema: No Integumentary: Yes: WNL Neurological: Yes: Alert, Oriented ...Motor Strength: WNL Psychiatric: Yes: WNL Labs: CBC, BMP 04/09/19 06:03 04/09/19 06:03 INR, PTT INR 0.99 (0.83-1.09) 04/06/19 13:45 Problem List - Problems (1) Compression fracture Code(s): JXA6230 - (2) Hallucinations Code(s): R44.3 - HALLUCINATIONS, UNSPECIFIED (3) Unable to ambulate Code(s): R26.2 - DIFFICULTY IN WALKING, NOT ELSEWHERE CLASSIFIED (4) Bimalleolar ankle fracture Code(s): S82.843A - DISPLACED BIMALLEOLAR FRACTURE OF UNSP LOWER LEG, INIT Qualifiers: Encounter type: initial encounter Fracture type: closed Laterality: right Qualified Code(s): S82.841A - Displaced bimalleolar fracture of right lower leg, initial encounter for closed fracture Assessment/Plan A/P: Low back pain, hip pain, hallucinations pelvic x-ray shows a significant wedge last compression fracture to L1 of indeterminate age. Given the patient was ambulatory prior to fall believe that this is a new fracture Lab work is grossly normal, no leukocytosis, H&H stable, electrolytes within normal limits and no urinary infection Given the complexity of the spinal fractures and inability to ambulate, ECHO wnl Cardiac humphrey stable will f/u
--- NOTE | 2019-04-09 17:55 | CON.PSY ---
Psychiatry Consult Chief Complaint: 68 [place] old female with ahistory of Depressive Disorder, chronic pain > she is being treated by Dr. Christy, rosettao has been managing her Depression. Patient is on 3 anti depressants, 2 Benzos and sleep medication. reports of confusion. Patient seen by Dr. Mathews for Neuro Eval. SOme MCI evident. Symptoms: reports: Depressed Mood - Previous Psychiatric Treatment Outpatient: Less than 6 mos ago Inpatient: None - Previous Substance Abuse Treatment Outpatient: None Inpatient: None - Reason for Previous Treatment Reason for Previous Treatment: Major Depression - Current Medications Current Medications: Active Medications Atorvastatin Calcium (Lipitor -) 20 mg PO HS ON LICENSE OF [facility] Last Admin: 04/08/19 21:07 Dose: 20 mg Bupropion HCl (Wellbutrin Xl -) 300 mg PO DAILY ON LICENSE OF [facility] Last Admin: 04/09/19 11:37 Dose: 300 mg Calcium Carbonate (Calcium Carbonate -) 1,300 mg PO DAILY ON LICENSE OF [facility] Last Admin: 04/09/19 11:37 Dose: 1,300 mg Clonazepam (Klonopin -) 1 mg PO BID ON LICENSE OF [facility] Last Admin: 04/09/19 11:44 Dose: 1 mg Cyanocobalamin (Vitamin B12 -) 1,000 mcg PO DAILY ON LICENSE OF [facility] Last Admin: 04/09/19 11:38 Dose: 1,000 mcg Heparin Sodium (Porcine) (Heparin -) 5,000 unit SQ BID ON LICENSE OF [facility] Last Admin: 04/09/19 11:44 Dose: 5,000 unit Levothyroxine Sodium (Synthroid -) 25 mcg PO DAILY@0700 ON LICENSE OF [facility] Last Admin: 04/09/19 06:14 Dose: 25 mcg Quetiapine Fumarate (Seroquel -) 25 mg PO BID ON LICENSE OF [facility] Venlafaxine HCl (Effexor Xr -) 75 mg PO DAILY ON LICENSE OF [facility] Last Admin: 04/09/19 11:37 Dose: 75 mg - Allergies Allergies: Allergies Allergy/AdvReac Type Severity Reaction Status Date / Time Penicillins Allergy Severe Verified 04/06/19 17:32 - Current Living Status Usual Living Arrangement: With Spouse - Current Mental Status Evaluation Appearance: Well Groomed Attitude: Cooperative - Affect Affect: Constrictive Appropriateness: Appropriate to Content - Mood Mood: Euthymic - Speech/Language Expressive: Coherent - Psychomotor Activity Psychomotor Activity: Slowed - Thought Process Thought Process: Intact - Thought Content Hallucinations: Absent Delusions: Absent - Self Perception Self Perception: No Impairment - Cognition Attention: Alert Memory, Immediate Recall: Intact Memory, Short Term: 2/3 Memory, Remote with Promptin/3 - Concentration Serial Sevens Intact: No Simple Calculations Intact: Yes - Abstraction Proverb Interpretation: Intact Judgement: Intact - Insight Insight: Intact - Impulse Control Impulse Control: Minimally Impaired - Suicidal Ideation Suicidal Ideation: No - Homicidal Ideation Homicidal Ideation: No Assessment/Plan 1) patient is on a comp-trisha Psycho Pharmacology for DEpression. 2) will continue with [facility] Psych meds.
--- NOTE | 2019-04-09 21:13 | PN ---
Progress Note, Physician - Current Medication List Current Medications: Active Medications Atorvastatin Calcium (Lipitor -) 20 mg PO HS [facility] Last Admin: 04/08/19 21:07 Dose: 20 mg Bupropion HCl (Wellbutrin Xl -) 300 mg PO DAILY [facility] Last Admin: 04/09/19 11:37 Dose: 300 mg Calcium Carbonate (Calcium Carbonate -) 1,300 mg PO DAILY [facility] Last Admin: 04/09/19 11:37 Dose: 1,300 mg Clonazepam (Klonopin -) 1 mg PO BID [facility] Last Admin: 04/09/19 11:44 Dose: 1 mg Cyanocobalamin (Vitamin B12 -) 1,000 mcg PO DAILY [facility] Last Admin: 04/09/19 11:38 Dose: 1,000 mcg Heparin Sodium (Porcine) (Heparin -) 5,000 unit SQ BID [facility] Last Admin: 04/09/19 11:44 Dose: 5,000 unit Levothyroxine Sodium (Synthroid -) 25 mcg PO DAILY@0700 [facility] Last Admin: 04/09/19 06:14 Dose: 25 mcg Quetiapine Fumarate (Seroquel -) 25 mg PO BID [facility] Venlafaxine HCl (Effexor Xr -) 75 mg PO DAILY [facility] Last Admin: 04/09/19 11:37 Dose: 75 mg - Objective Vital Signs: Vital Signs Temperature 98.3 F 04/09/19 19:22 Pulse Rate 86 04/09/19 19:22 Respiratory Rate 20 04/09/19 19:22 Blood Pressure 123/77 04/09/19 19:22 O2 Sat by Pulse Oximetry (%) 98 04/08/19 21:00 Labs: CBC, BMP 04/09/19 06:03 04/09/19 06:03 INR, PTT INR 0.99 (0.83-1.09) 04/06/19 13:45
[2019-04-09] MEDS: ATORVASTATIN CA 20 MG TABLET (FP) PO SCH (21:26)
[2019-04-09] MEDS: QUEtiapine FUMARATE 25 MG TABLET (FP) PO SCH (21:26)
[2019-04-10] MEDS ORDERED: ACETAMINOPHEN 325 MG TABLET (FP) PO PRN (03:40)
[2019-04-10] MEDS: LEVOTHYROXINE NA 25 MCG TABLET (FP) PO SCH (06:44)
[2019-04-10] MEDS: CYANOCOBALAMIN 1,000 MCG TABLET (FP) PO SCH (10:08)
[2019-04-10] MEDS: clonazePAM 0.5 MG TABLET PO SCH ×2 (10:08→21:37)
[2019-04-10] MEDS: CALCIUM CARBONATE 650 MG TABLET PO SCH (10:08)
[2019-04-10] MEDS: HEPARIN NA (PORCINE) 5,000 UNITS/ML 1ML VIAL SQ SCH ×2 (10:09→21:37)
[2019-04-10] MEDS: QUEtiapine FUMARATE 25 MG TABLET (FP) PO SCH ×2 (10:09→21:08)
[2019-04-10] MEDS ORDERED: PT OWN MED DRAWER 7, Y5N ONE (10:11)
[2019-04-10] MEDS: VENLAFAXINE HCL 75 MG E.R. CAPSULES (FP) PO SCH (10:13)
--- NOTE | 2019-04-10 13:05 | PN ---
Progress Note (short form) - Note Progress Note: NEUROLOGY F/U for Dr. Reid Mathews's consultation note reviewed, i have known this lady x years, most recently rx. by my colleague Dr. 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 PMHX: HLD, hypothyroid, depression/anxiety, insomnia, chronic pain, Breast CA s/ p R masectomy, and previous hx of migraines, now quiescent. On: atorvastatin, Synthroid, zolpidem, clonazepam 1mg BID, buproprion 300 mg, B12, percocet 10 qd, venlafaxine 150 mg, vortioxetine 10 mg. Surgical hx: R THR, R ankle fixation Notes 3 years of progressive gait decline with recurrent falls, now requiring use of cane and her walking behind her to "catch her." Admitted after exacerbation of low back pain after fall 2 weeks ago w radiation into legs. Ambulation limited due to "heavy, weak" feeling in legs. She describes the pain as "aching in nature" and worse in evening hours, awakening her from sleep. Previously followed by Dr. Davion Christy in 2017 for change in speech, handwriting and imbalance. MRI of brain at time 05/26/17 (reviewed): mod volume loss with chronic periventricular ischemic changes. MRI LS spine this admission (reviewed): recent compression fracture L1. L3/L4 mild L paracentral disc bulge with facet hypertrophy. L4/L5, L5/S1 disc bulges. ROS sign for seeing her daughter and feeling of presence, which is not frightful to her. Her and her admit more recent memory decline and accusations that he is stealing money, so he has taken over cooking, cleaning, shopping and bills. Head CT (reviewed): Mod atrophy with chronic periventricular ischemic changes. -Today she remains with paranoid delusions, has mild increased tone in all 4 ext.with bilat wrist mild cogwheeling. A/P: She likely has Lewy Body disease given depression, some parkinsonian features, depression, fluctuating cognition. Suggest: Memantine 5mg bid to be increased to 10mg bid after 15 days, would try to avoid neuroleptics, can sometimes worsen mental status in LBD setting. F/U with neurology as outpt. Thanks, Ever Oliver MD
[2019-04-10] MEDS: ATORVASTATIN CA 20 MG TABLET (FP) PO SCH (21:37)
--- NOTE | 2019-04-10 23:38 | PN ---
Progress Note, Physician - Current Medication List Current Medications: Active Medications Acetaminophen (Tylenol -) 650 mg PO Q4H PRN PRN Reason: pain Atorvastatin Calcium (Lipitor -) 20 mg PO HS [facility] Last Admin: 04/10/19 21:37 Dose: 20 mg Bupropion HCl (Wellbutrin Xl -) 300 mg PO DAILY [facility] Last Admin: 04/10/19 10:08 Dose: 300 mg Calcium Carbonate (Calcium Carbonate -) 1,300 mg PO DAILY [facility] Last Admin: 04/10/19 10:08 Dose: 1,300 mg Clonazepam (Klonopin -) 1 mg PO BID [facility] Last Admin: 04/10/19 21:37 Dose: 1 mg Cyanocobalamin (Vitamin B12 -) 1,000 mcg PO DAILY [facility] Last Admin: 04/10/19 10:08 Dose: 1,000 mcg Heparin Sodium (Porcine) (Heparin -) 5,000 unit SQ BID [facility] Last Admin: 04/10/19 21:37 Dose: 5,000 unit Levothyroxine Sodium (Synthroid -) 25 mcg PO DAILY@0700 [facility] Last Admin: 04/10/19 06:44 Dose: 25 mcg Quetiapine Fumarate (Seroquel -) 25 mg PO BID [facility] Last Admin: 04/10/19 21:08 Dose: 25 mg Venlafaxine HCl (Effexor Xr -) 75 mg PO DAILY [facility] Last Admin: 04/10/19 10:13 Dose: 75 mg - Objective Vital Signs: Vital Signs Temperature 97.5 F L 04/10/19 18:00 Pulse Rate 86 04/10/19 18:00 Respiratory Rate 20 04/10/19 18:00 Blood Pressure 114/75 04/10/19 18:00 O2 Sat by Pulse Oximetry (%) 97 04/10/19 09:00 Labs: CBC, BMP 04/09/19 06:03 04/09/19 06:03 INR, PTT INR 0.99 (0.83-1.09) 04/06/19 13:45
[2019-04-11] MEDS: LEVOTHYROXINE NA 25 MCG TABLET (FP) PO SCH (05:59)
[2019-04-11] MEDS ORDERED: PT OWN MED DRAWER 7, Y5N ONE (09:23)
[2019-04-11] MEDS: VENLAFAXINE HCL 75 MG E.R. CAPSULES (FP) PO SCH (10:21)
[2019-04-11] MEDS: CYANOCOBALAMIN 1,000 MCG TABLET (FP) PO SCH (10:22)
[2019-04-11] MEDS: HEPARIN NA (PORCINE) 5,000 UNITS/ML 1ML VIAL SQ SCH ×2 (10:22→21:03)
[2019-04-11] MEDS: clonazePAM 0.5 MG TABLET PO SCH ×2 (10:22→21:04)
[2019-04-11] MEDS: QUEtiapine FUMARATE 25 MG TABLET (FP) PO SCH ×2 (10:22→21:04)
[2019-04-11] MEDS: CALCIUM CARBONATE 650 MG TABLET PO SCH (10:23)
[2019-04-11] MEDS: ATORVASTATIN CA 20 MG TABLET (FP) PO SCH (21:04)
--- NOTE | 2019-04-11 22:27 | PN ---
Progress Note, Physician - Current Medication List Current Medications: Active Medications Acetaminophen (Tylenol -) 650 mg PO Q4H PRN PRN Reason: pain Atorvastatin Calcium (Lipitor -) 20 mg PO HS [facility] Last Admin: 04/11/19 21:04 Dose: 20 mg Bupropion HCl (Wellbutrin Xl -) 300 mg PO DAILY [facility] Last Admin: 04/11/19 10:22 Dose: 300 mg Calcium Carbonate (Calcium Carbonate -) 1,300 mg PO DAILY [facility] Last Admin: 04/11/19 10:23 Dose: 1,300 mg Clonazepam (Klonopin -) 1 mg PO BID [facility] Last Admin: 04/11/19 21:04 Dose: 1 mg Cyanocobalamin (Vitamin B12 -) 1,000 mcg PO DAILY [facility] Last Admin: 04/11/19 10:22 Dose: 1,000 mcg Heparin Sodium (Porcine) (Heparin -) 5,000 unit SQ BID [facility] Last Admin: 04/11/19 21:03 Dose: 5,000 unit Levothyroxine Sodium (Synthroid -) 25 mcg PO DAILY@0700 [facility] Last Admin: 04/11/19 05:59 Dose: 25 mcg Quetiapine Fumarate (Seroquel -) 25 mg PO BID [facility] Last Admin: 04/11/19 21:04 Dose: 25 mg Venlafaxine HCl (Effexor Xr -) 75 mg PO DAILY [facility] Last Admin: 04/11/19 10:21 Dose: 75 mg - Objective Vital Signs: Vital Signs Temperature 98.4 F 04/11/19 18:39 Pulse Rate 87 04/11/19 18:39 Respiratory Rate 20 04/11/19 18:39 Blood Pressure 132/56 L 04/11/19 18:39 O2 Sat by Pulse Oximetry (%) 96 04/11/19 09:00 Labs: CBC, BMP 04/09/19 06:03 04/09/19 06:03 INR, PTT INR 0.99 (0.83-1.09) 04/06/19 13:45
[2019-04-12 05:52] VITALS: TEMP 97.6
[2019-04-12] MEDS: LEVOTHYROXINE NA 25 MCG TABLET (FP) PO SCH (06:39)
--- NOTE | 2019-04-12 07:07 | ECHO ---
Name: NICOLE PINEDO Exam:Adult Echocardiogram Study Date: 04/07/2019 10:23 AM Age: 68 yrs Height: 67 in Weight: 166 lb BSA: 1.9 m2 MMode/2D Measurements & Calculations IVSd: 0.82 cm Ao root diam: 3.1 cm LVIDd: 4.5 cm LA dimension: 3.2 cm LVIDs: 3.1 cm LVPWd: 0.94 cm EDV(Teich): 91.4 ml LVOT diam: 2.2 cm ESV(Teich): 36.8 ml Doppler Measurements & Calculations MV E max jose alejandro: 35.5 cm/sec Ao V2 max: 120.1 cm/sec MV A max jose alejandro: 58.2 cm/sec Ao max P.8 mmHg MV E/A: 0.61 Ao V2 mean: 84.1 cm/sec MV dec time: 0.24 sec Ao mean P.3 mmHg Ao V2 VTI: 21.3 cm CEZAR(I,D): 2.6 cm2 CEZAR(V,D): 3.1 cm2 LV V1 max P.6 mmHg MR max jose alejandro: 350.0 cm/sec LV V1 mean P.3 mmHg MR max P.1 mmHg LV V1 max: 95.3 cm/sec LV V1 mean: 49.9 cm/sec LV V1 VTI: 14.2 cm SV(LVOT): 55.7 ml Med Peak E' Jose Alejandro: 10.7 cm/sec Med E/e': 3.3 Lat Peak E' Jose Alejandro: 5.0 cm/sec Lat E/e': 7.1 Procedure A two-dimensional transthoracic echocardiogram with color flow and Doppler was performed. Left Ventricle The left ventricular size, thickness and function are normal. The left ventricular ejection fraction is normal. E/A reversal consistent with but not diagnostic of poor LV compliance. The left ventricular w all motion is normal. Right Ventricle The right ventricle is normal in size and function. Atria Normal left and right atrial size and function. Mitral Valve There is mild mitral valve thickening. There is no mitral valve stenosis. There is mild to moderate m itral regurgitation. Tricuspid Valve There is trivial tricuspid valve thickening. There is no tricuspid stenosis. There was insufficient T R detected to calculate RV systolic pressure. Aortic Valve The aortic valve is not well visualized. No hemodynamically significant valvular aortic stenosis. No aortic regurgitation is present. Pulmonic Valve The pulmonic valve is not well visualized. Great Vessels The aortic root is normal size. Pericardium/Pleura There is no pericardial effusion. Interpretation Summary The left ventricular size, thickness and function are normal The left ventricular ejection fraction is normal. The left ventricular wall motion is normal. There is mild to moderate mitral regurgitation. E/A reversal consistent with but not diagnostic of poor LV compliance There was insufficient TR detected to calculate RV systolic pressure. MD Miguel Millan 04/07/2019 12:54 PM
[2019-04-12] MEDS: CALCIUM CARBONATE 650 MG TABLET PO SCH (09:32)
[2019-04-12] MEDS: clonazePAM 0.5 MG TABLET PO SCH (09:32)
[2019-04-12] MEDS: VENLAFAXINE HCL 75 MG E.R. CAPSULES (FP) PO SCH (09:32)
[2019-04-12] MEDS: CYANOCOBALAMIN 1,000 MCG TABLET (FP) PO SCH (09:33)
[2019-04-12] MEDS: QUEtiapine FUMARATE 25 MG TABLET (FP) PO SCH (09:33)
[2019-04-12] MEDS: HEPARIN NA (PORCINE) 5,000 UNITS/ML 1ML VIAL SQ SCH (09:33)
[2019-04-12 10:56] VITALS: BP 125/81; PULSE 94
--- NOTE | 2019-04-12 11:19 | DS ---
Physical Examination Vital Signs: Vital Signs Temperature 97.6 F 04/12/19 05:51 Pulse Rate 94 H 04/12/19 10:00 Respiratory Rate 18 04/12/19 10:00 Blood Pressure 125/81 04/12/19 10:00 O2 Sat by Pulse Oximetry (%) 96 04/11/19 21:00 Labs: CBC, BMP 04/09/19 06:03 04/09/19 06:03 Discharge Summary Reason For Visit: COMPRESSION FRACTURE/UNABLE TO WLK Current Active Problems Compression fracture L1 Hallucinations (Acute) Unable to ambulate (Acute) Depression Hypothyroidism HLD Hospital Course: Pt is a 68-year-old female w/ PMH significant for breast cancer status post mastectomy(in remission), coronary artery disease, HLD, HTN, depression, hypothyroidism and hiatal hernia. Pt presented to the ER for unsteady gait and inability to ambulate. According to her she fell approximately 10 days prior to the admission. In the ER pt had MRI of LS spine wc showed compression fracture L1. L3/L4 mild L paracentral disc bulge with facet hypertrophy. L4/L5, L5/S1 disc bulges. I reviewed this w/ neuro(Dr Mathews) who felt that no surgical intervention was needed. Condition: Good - Instructions Diet, Activity, Other Instructions: Regular diet Disposition: LONG-TERM FACILITY - Home Medications Comprehensive Discharge Medication List: Ambulatory Orders Atorvastatin Calcium [Lipitor] 20 mg PO HS 08/25/12 Calcium Carbonate [Calcium] 1,200 mg PO DAILY 08/25/12 Cholecalciferol (Vitamin D3) [Vitamin D] 1,000 unit PO DAILY 08/25/12 Levothyroxine [Synthroid -] 25 mcg PO DAILY 08/25/12 clonazePAM [Klonopin -] 1 mg PO BID 08/25/12 Bupropion HCl [Wellbutrin Xl] 300 mg PO HS 11/05/16 Cyanocobalamin [Vitamin B12 -] 1,000 mcg PO DAILY 11/05/16 Acetaminophen [Tylenol .Regular Strength -] 650 mg PO Q4H PRN tablet 04/12/19 Quetiapine Fumarate [Seroquel -] 25 mg PO BID tablet 04/12/19 Venlafaxine HCl ER [Effexor Xr -] 75 mg PO DAILY cap.er.24h 04/12/19
--- NOTE | 2019-04-12 14:16 | PN ---
Progress Note, Physician History of Present Illness: The patient is a 68-year-old female past medical history of breast cancer status post mastectomy, in remission, coronary artery disease, HLD, depression, hypothyroidism, hiatal hernia, who presents to the ER today for unsteady gait and inability to ambulate. She also complains of left hip pain. According to her she fell approximately 10 days ago landing on her knees. Since then she has had increasing pain over the past 10 days. She is usually ambulatory meeting no assistance to walk. Since the fall she has been unable to ambulate and has been in a wheelchair. She also notes that she has right-sided back pain. Of note she also admits to hearing voices and seeing things that aren't there. She is currently being worked up by her primary care doctor for what I believe is a recurrence of her cancer. Denies fevers, chills, difficulty breathing, shortness of breath, chest pain, numbness and tingling and weakness to the affected extremities, no bladder bowel incontinence. PCP: Dr. Kev Pantoja Onc: Dr. Dubon - Objective Vital Signs: Vital Signs Temperature 97.6 F 04/12/19 05:51 Pulse Rate 94 H 04/12/19 10:00 Respiratory Rate 18 04/12/19 10:00 Blood Pressure 125/81 04/12/19 10:00 O2 Sat by Pulse Oximetry (%) 96 04/11/19 21:00 Eyes: Yes: WNL, Conjunctiva Clear, EOM Intact HENT: Yes: WNL, Atraumatic, Normocephalic Neck: Yes: WNL, Supple, Trachea Midline Cardiovascular: Yes: WNL, Regular Rate and Rhythm Respiratory: Yes: WNL, Regular, CTA Bilaterally Gastrointestinal: Yes: WNL, Normal Bowel Sounds Genitourinary: Yes: WNL Musculoskeletal: Yes: WNL Extremities: Yes: WNL Edema: No Integumentary: Yes: WNL Neurological: Yes: WNL, Alert, Oriented ...Motor Strength: WNL Psychiatric: Yes: WNL Labs: CBC, BMP 04/09/19 06:03 04/09/19 06:03 INR, PTT INR 0.99 (0.83-1.09) 04/06/19 13:45 Problem List - Problems (1) Compression fracture Code(s): BAY0033 - (2) Hallucinations Code(s): R44.3 - HALLUCINATIONS, UNSPECIFIED (3) Unable to ambulate Code(s): R26.2 - DIFFICULTY IN WALKING, NOT ELSEWHERE CLASSIFIED (4) Bimalleolar ankle fracture Code(s): S82.843A - DISPLACED BIMALLEOLAR FRACTURE OF UNSP LOWER LEG, INIT Qualifiers: Encounter type: initial encounter Fracture type: closed Laterality: right Qualified Code(s): S82.841A - Displaced bimalleolar fracture of right lower leg, initial encounter for closed fracture Assessment/Plan A/P: Low back pain, hip pain, hallucinations pelvic x-ray shows a significant wedge last compression fracture to L1 of indeterminate age. Given the patient was ambulatory prior to fall believe that this is a new fracture Lab work is grossly normal, no leukocytosis, H&H stable, electrolytes within normal limits and no urinary infection Given the complexity of the spinal fractures and inability to ambulate, ECHO wnl Cardiac humphrey stable will f/u
== END 2019-04-12 12:42 | DRG 57 ==
LOC: JER 12:21 → JERBED 19:58 → J6S 04-07 11:16
PROVIDERS: ADMIT Internal Medicine; ATTEND Internal Medicine
DX: G31.83 Neurocognitive disorder with Lewy bodies (principal); S32.010A Wedge compression fracture of first lumbar vertebra, initial encounter for closed fracture; R44.3 Hallucinations, unspecified; F02.80 Dementia in other diseases classified elsewhere, unspecified severity, without behavioral disturbance, psychotic disturbance, mood disturbance, and anxiety; I25.10 Atherosclerotic heart disease of native coronary artery without angina pectoris; F32.9 Major depressive disorder, single episode, unspecified; E03.9 Hypothyroidism, unspecified; E78.5 Hyperlipidemia, unspecified; Z88.0 Allergy status to penicillin; R26.2 Difficulty in walking, not elsewhere classified; F41.9 Anxiety disorder, unspecified; G47.00 Insomnia, unspecified; G89.29 Other chronic pain; Z85.3 Personal history of malignant neoplasm of breast; G43.909 Migraine, unspecified, not intractable, without status migrainosus; M48.061 Spinal stenosis, lumbar region without neurogenic claudication; W19.XXXA Unspecified fall, initial encounter; Y93.89 Activity, other specified; Y92.098 Other place in other non-institutional residence as the place of occurrence of the external cause; Y99.8 Other external cause status
CPT/HCPCS: 36415; 70450-TC; 70551-TC; 72100-TC-FY; 72131-TC; 72148-TC; 73523-TC-FY; 80053; 81003; 82607; 83540; 83550; 83735; 84443; 85025; 85610; 86593; 87077; 87086; 93005; 93010; 93306-TC; 99285-25; J0131; J1644

== ENCOUNTER 2023-09-18 07:39 | Emergency (ER) | payer OTHER, MEDICARE ==
[2023-09-18 08:05] VITALS: TEMP 99; BMI 26.4
[2023-09-18] MEDS ORDERED: ACETAMINOPHEN 1000 MG/100 ML BAG IVPB ONE (08:32)
[2023-09-18] MEDS ORDERED: SODIUM CHLORIDE 0.9% 500 ML INFUS.BAG IV ONE (08:32)
[2023-09-18] MEDS ORDERED: ACETAMINOPHEN INJECTION 100 ML IVPB ONE (08:36)
[2023-09-18 08:55] LABS: BASO % 0.5 % (0-2.0); EOS % 0.5 % (0-4.5); HEMOGLOBIN 11.6 GM/dL (10.7-15.3); LYMPH % 14.1 % (8-40); MCH 23.6 pg (25.7-33.7); MCHC 32.1 g/dl (32.0-36.0); MEAN CELL VOLUME 73.6 fl (80-96); MEAN PLT VOLUME 8.6 fl (7.5-11.1); MONO % 5.2 % (3.8-10.2); NEUT % 79.7 % (42.8-82.8); PLATELET COUNT 242 10^3/uL (134-434); WHITE BLOOD COUNT 11.6 K/mm3 (4.0-10.0)
[2023-09-18 09:14] LABS: POTASSIUM 3.9 mmol/L (3.5-5.1)
[2023-09-18 09:15] LABS: CALCIUM 9.1 mg/dL (8.5-10.1)
[2023-09-18 09:16] LABS: ALBUMIN 3.8 g/dl (3.4-5.0); BLOOD UREA NITROGEN 9.1 mg/dL (7-18)
[2023-09-18 09:19] LABS: CREATININE 1.3 mg/dL (0.55-1.3)
[2023-09-18 09:21] LABS: BILIRUBIN,TOTAL 0.5 mg/dL (0.2-1); TOT PROT 7.7 g/dl (6.4-8.2)
[2023-09-18 09:58] LABS: PH,URINE 6.5 (5.0-8.0); URINE APPEARANCE CLEAR; URINE BILIRUBIN NEGATIVE (NEGATIVE); URINE COLOR YELLOW; URINE GLUCOSE (UA) NEGATIVE (NEGATIVE); URINE KETONE NEGATIVE (NEGATIVE); URINE LEUK ESTERASE 3+ (NEGATIVE); URINE NITRITE NEGATIVE (NEGATIVE); URINE PROTEIN NEGATIVE (NEGATIVE); URINE UROBILINOGEN 0.2 mg/dL (0.2-1.0)
[2023-09-18 10:12] LABS: EPI CELLS 43.5 /uL (0-25.1); HYALINE CASTS 0.12 /uL (0-3.1); URINE BACTERIA 35.8 /uL (0-1359); URINE RBC 100.3 /uL (0-23.9)
[2023-09-18] MEDS ORDERED: CEFTRIAXONE 1 GM in DEXTROSE 5%-WATER - 100 ML IVPB ONE (10:20)
[2023-09-18] MEDS ORDERED: CEFTRIAXONE 1 GM/50 ML BAG ONE (10:31)
[2023-09-18 11:35] VITALS: BP 123/63; PULSE 70; RESP 18
== END 2023-09-18 12:15 | disposition home or self-care (01) ==
LOC: JER 07:39
PROC: 3E03329 Introduction of Other Anti-infective into Peripheral Vein, Percutaneous Approach (ICD-10-PCS; principal; 2023-09-18)
PROC: 3E033NZ Introduction of Analgesics, Hypnotics, Sedatives into Peripheral Vein, Percutaneous Approach (ICD-10-PCS; 2023-09-18)
DX: R30.0 Dysuria (principal); R10.30 Lower abdominal pain, unspecified; N39.0 Urinary tract infection, site not specified; R31.9 Hematuria, unspecified
CPT/HCPCS: 36415; 80053; 81003; 85025; 87086; 99284-25